=== PATIENT | female | born 1990 | race African-American/Black ===

== ENCOUNTER 2018-09-03 22:17 | Emergency (ER) | payer OTHER ==
[~2018-09-03] VITALS: Ht 152.4 cm; Wt 54.4 kg
[2018-09-03 22:24] VITALS: BP_SYST 109
[2018-09-04] MEDS ORDERED: ACETAMINOPHEN 325 MG TABLET PO ONE (00:15)
[2018-09-04 01:30] VITALS: BP_SYST 109
== END 2018-09-04 01:30 | disposition home or self-care (01) ==
LOC: SED 22:17
DX: G44.209 Tension-type headache, unspecified, not intractable (principal)
CPT/HCPCS: 99282

== ENCOUNTER 2018-10-01 20:01 | Emergency (ER) | payer OTHER ==
[~2018-10-01] VITALS: Ht 152.4 cm; Wt 54.4 kg
[2018-10-01 20:18] VITALS: BP_SYST 119
== END 2018-10-01 20:45 | disposition left against medical advice (07) ==
LOC: SED 20:01
DX: R51 Headache (principal); Z53.21 Procedure and treatment not carried out due to patient leaving prior to being seen by health care provider